=== PATIENT | male | born 1955 | race African-American/Black ===

== ENCOUNTER → 2018-12-27 | Day surgery (SDC) | payer MEDICARE ==
[2018-12-20 12:23] LABS: EOSINOPHILS # (AUTO) 0.1 (0.0-0.4); EOSINOPHILS % 1.5 % (0.0-6.0); HEMATOCRIT 51.8 % (38.2-49.6); HEMOGLOBIN 17.3 g/dL (14.0-18.0); LYMPHOCYTES # (AUTO) 1.5 (1.0-3.2); MEAN CORPUSCULAR HEMOGLOBIN 32.6 pg (28-32); MEAN CORPUSCULAR HGB CONC 33.4 g/dL (31-35); MEAN CORPUSCULAR VOLUME 97.6 fL (81-99); MONOCYTES # (AUTO) 0.5 (0.2-0.8); MONOCYTES % 11.7 % (4.4-11.3); NEUTROPHILS % 48.6 % (38.7-80.0); PLATELET COUNT 174 x10e3/uL (140-360); RED BLOOD COUNT 5.31 x10e6/uL (4.3-5.7); RED CELL DISTRIBUTION WIDTH 14.7 % (11.7-14.4)
[~2018-12-27] MED LIST: DIOVAN160 MG PO; HYOSCYAMINE SULFATE 0.5 MG/ML INJ ONE; MIDAZOLAM HCL 2 MG/2 ML VIAL ONE; PROPOFOL IV EMULSION 10 MG/ML 50 ML VIAL ONE; ZETIA10 MG PO
--- OUTSIDE RECORDS SUMMARY | 2018-12-27 06:06 | XMS REPORT | Encounter Summary ---
Author Organization Unknown Address [address] [place] [address] Phone [phone] Care Team Providers Care Landscape Gardener Name Role Phone Dr. Yogi Ordaz 3 [phone] Reason for Visit Quality BMI DEPRESSION FALL; hyperlipidemia; AWV Annual Wellness Visit Male (VFP); hypertension Instructions 1. Adult health examination electrocardiogram visual acuity 2. Body mass index 25-29 - overweight learning about healthy weight 3. Overweight learning about healthy weight 4. Depression screening 5. At risk for falls preventing falls: care instructions 6. Screening for malignant neoplasm of colon colonoscopy referral 7. Benign essential hypertension CMP, serum or plasma CBC w/ auto diff TSH, serum or plasma urinalysis, dipstick 8. Hyperlipidemia high cholesterol: care instructions lipid panel, serum 9. Impaired fasting glycaemia HbA1c (hemoglobin A1c), blood 10. Screening for malignant neoplasm of prostate PSA, serum or plasma 11. Screening for disorder hepatitis C virus RNA, quant, PCR, serum or plasma 12. Lower urinary tract symptoms due to benign prostatic hypertrophy 13. Nicotine dependence stopping smoking: care instructions advised to quit smoking deciding about using medicines to quit smoking Wellbutrin XL 150 mg 24 hr tablet, extended release 14. Influenza vaccination declined Discussion Note: None recorded. Plan of Care Patient Instructions It was good to see you in the office today for your Medicare Annual Wellness Visit. You have been provided some information on healthy nutrition, including a diet rich in fruits and vegetables, minimizing simple carbohydrates, salt, and saturated fats. I want to encourage regular cardiovascular exercise such as walking at least 30 minutes daily, 5 times per week. Please remember to schedule any preventive health measures that we talked about today. You have also been provided education on fall prevention and community- based lifestyle interventions to help reduce health risks and promote healthy living in your Annual Wellness folder. Screening Recommendations 1. Vaccines Pneumococcal: Recommended today Influenza: Recommended today Shingles: Recommended today Tetanus: Recommended today 2. Prostate Screening: Ordered 3. Colorectal cancer Screening Colonoscopy: Recommended today Fecal Occult Blood: discussed today and information sent with patient in their Annual Wellness health folder 4. Bone Mass Measurement: discussed today 5. Eye Exam Screening: discussed today 6. Cholesterol Screening: discussed today 7. Diabetes Screening: discussed today Reminders Provider Appointments Return to Office on or around 11/23/2018 Yogi Ordaz Jr, MD Lab CMP, Serum or Plasma 10/27/2018 [facility] CBC W/ Auto Diff 10/27/2018 [facility] TSH, Serum or Plasma 10/27/2018 [facility] Lipid Panel, Serum 10/27/2018 [facility] HbA1C (Hemoglobin a1C), Blood 10/27/2018 [facility] PSA, Serum or Plasma 10/27/2018 [facility] Urinalysis, Dipstick 10/27/2018 [facility] Hepatitis C Virus RNA, Quant, PCR, Serum or Plasma 10/27/2018 [facility] Referral Colonoscopy Referral 10/27/2018 Procedures None recorded. Surgeries None recorded. Imaging Electrocardiogram 10/27/2018 [facility] Medications Name Start Date amlodipine 5 mg tablet Take 1 tablet every day by oral route. Wellbutrin XL 150 mg 24 hr tablet, extended release Take 1 tablet every day by oral route for 90 days. Medications Administered None recorded. Vitals Height Weight BMI Blood Pressure 5 ft 11 in 194 lbs 27.1 kg/m2 (1) 152/88 mm[Hg] (2) 128/80 mm[Hg] Lab Results Date Name Specimen Result Interpretation Description Value Range Status Address 10/27/2018 Electrocardiogram Rate & Rhythm sinus bradycardia [facility] ([facility]) Hobby: [address], [place] [facility]: [address], [place] Interval [facility] ([facility]) Hobby: [address], [place] Q[place] Duration [facility]) Hobby: [address], [place] Interval [facility] ([facility]) Hobby: [address], [place] 10/27/2018 Urinalysis, Dipstick Color Color light yellow [facility] ([facility]) Hobby: [address], [place] Color Appearance clear [facility] ([facility]) Hobby: [address], [place] Color Glucose negative [facility]obby: [address], [place] Color Bilirubin negative [facility] ([facility]) [facility]obby: [address], [place] Color Ketones negative [facility] ([facility]) Hobby: [address], [place] Color Specific [place] 1.020 [facility] ([facility]) Hobby: [address], [place] Color Blood negative [facility] ([facility]) [facility]: [address], [place] Color PH 5.5 [facility] ([facility]) [facility]obby: [address], [place] Color Protein negative [facility] ([facility]) Hobby: [address], [place] Color Urobilinogen 0.2 [facility] ([facility]) Hobby: [address], [place] Color Nitrites negative [facility] ([facility]) Hobby: [address], [place] Color Leukocytes negative [facility] ([facility]) Hobby: [address], [place] 10/27/2018 Visual Acuity R Eye Corrected 20/20 [facility] ([facility]) Hobby: [address], [place] L Eye Corrected 20/20 [facility] ([facility]) Hobby: [address], [place] Allergies Code Code System Name Reaction Severity Status Onset Ygypzoc-klp-etp Reductase Inhibitors Myalgias (Muscle Pain) Active NKDA Problems Name Status Onset Date Source Hyperlipidemia Active 10/27/2018 Benign Essential Hypertension Active 10/27/2018 Procedures Date Name Performed by 10/27/2018 Electrocardiogram [facility] ([facility]) [facility]obby [address] [place] [address] (Work Place) Vaccine List None recorded. Social History Smoking Status Heavy Tobacco Smoker (1/2 PPD) Past Encounters 10/27/2018 Adult Health Examination; Body Mass Index 25-29 - Overweight; Overweight; Depression Screening; At Risk for Falls; Screening for Malignant Neoplasm of Colon; Benign Essential Hypertension; Hyperlipidemia; Impaired Fasting Glycaemia; Screening for Malignant Neoplasm of Prostate; Screening for Disorder; Lower Urinary Tract Symptoms Due to Benign Prostatic Hypertrophy; Nicotine Dependence; Influenza Vaccination Declined Yogi Ordaz Jr, MD: [address], [place] [address], Ph. History of Present Illness Hypertension Reported By: Patient HPI: Severity: mild. Onset/Timing: gradual onset. Alleviating Factors: relieved with rest, medication. Self Care: not under emotional stress, blood pressure goal: 130/80. Associated Symptoms: no shortness of breath, no fatigue, no decline in exercise capacity Mini Cog Reported By: Patient Functional Ability: Personal/Social/ Draw a clock and write in the numbers in the correct place, and set the time to 10 minutes after 11 o'clock was completed correctly? Yes, 3 word recall: Your nurse or doctor will ask you to remember 3 words. In 5 minutes, they will ask you to repeat them. Patient recalled 3 words Review of Systems Comprehensive General Adult ROS Reported By: Patient Constitutional: Constitutional: no significant weight gain, no significant weight loss Cardiovascular: Cardiovascular: no chest pain, no shortness of breath when walking Respiratory: Respiratory: no cough, no wheezing, no shortness of breath Endocrine: Endocrine: no fatigue Physical Exam General Adult Exam (male), Cardiology Exam Reported By: Patient Constitutional: General Appearance: well-nourished, well-developed, appears stated age. Level of Distress: NAD Psychiatric: Insight: good judgement. Mental Status: active and alert, normal mood, normal affect. Orientation: to time, to place, to person, oriented to time, place, and person. Memory: recent memory normal, remote memory normal Lungs: Auscultation: good air movement, CTA except as noted, no wheezing, no rales/crackles, no rhonchi Cardiovascular: Heart Auscultation: RRR, normal S1, no rubs, no gallops, physiologically split S2, no click. Pulses including femoral / pedal: full and equal in all extremities except if noted. Systolic Murmur: not heard. Diastolic Murmur: not heard Musculoskeletal:: Extremities: no cyanosis, no edema, no peripheral signs of emboli Skin: Inspection and palpation: warm and dry. Nails: no clubbing Back: Thoracolumbar Appearance: normal curvature, no thoracic deformity, no chest wall tenderness Peripheral Pulses: Radial Pulse: normal
--- OUTSIDE RECORDS SUMMARY | 2018-12-27 06:06 | XMS REPORT ---
Author Author [facility] Address Unknown Phone Unavailable Care Team Providers Care Special Events Fundraiser Name Role Phone Unavailable Unavailable Problems This patient has no known problems. Allergies, Adverse Reactions, Alerts This patient has no known allergies or adverse reactions. Medications This patient has no known medications. Encounters Start Date/Time End Date/Time Encounter Type Admission Type Attending [facility] Care Department Encounter ID 2018-04-05 00:00:00 2018-04-05 00:00:00 Outpatient [facility] [id number] 2018-03-29 00:00:00 2018-03-29 00:00:00 Outpatient [facility] [id number] 2017-12-09 13:30:42 2017-12-09 13:30:42 Outpatient [facility] [id number] 2017-11-04 08:12:51 2017-11-04 08:12:51 Outpatient [facility] [id number] 2017-07-13 11:28:46 2017-07-13 11:28:46 Outpatient [facility] [id number] 2017-06-09 12:25:41 2017-06-09 12:25:41 Outpatient [facility] [id number] 2017-06-09 12:24:53 2017-06-09 12:24:53 Outpatient [facility] [id number] 2017-06-09 12:24:50 2017-06-09 12:24:50 Outpatient [facility] [id number] 2017-05-13 13:03:02 2017-05-13 13:03:02 Outpatient [facility] [id number] 2017-05-13 10:59:45 2017-05-13 10:59:45 Outpatient [facility] [id number] 2017-02-24 09:02:50 2017-02-24 09:02:50 Outpatient [facility] [id number] 2017-02-10 09:26:27 2017-02-10 09:26:27 Outpatient [facility] [id number] 2017-02-08 08:26:26 2017-02-08 08:26:26 Outpatient [facility] [id number] 2017-01-26 08:12:06 2017-01-26 08:12:06 Outpatient [facility] [id number]
--- OUTSIDE RECORDS SUMMARY | 2018-12-27 06:06 | XMS REPORT | Encounter Summary ---
Author Organization Unknown Address [address] [place] [address] Phone [phone] Care Team Providers Care Can Tester Name Role Phone Dr. Yogi Ordaz 3 [phone] Reason for Visit lab follow-up Instructions 1. Abdominal aortic aneurysm screening US, abdominal aorta 2. Raised prostate specific antigen Levaquin 500 mg tablet 3. Benign essential hypertension valsartan 160 mg tablet 4. Hyperlipidemia high cholesterol: care instructions Zetia 10 mg tablet 5. HMG COA reductase inhibitor adverse reaction Discussion Note: None recorded. Plan of Care Reminders Provider Appointments None recorded. Lab None recorded. Referral None recorded. Procedures None recorded. Surgeries None recorded. Imaging US, Abdominal Aorta 11/01/2018 [facility] ([facility] Medications Name Start Date Levaquin 500 mg tablet Take 1 tablet every 24 hours by oral route. valsartan 160 mg tablet Take 1 tablet every day by oral route for 90 days. Wellbutrin XL 150 mg 24 hr tablet, extended release Take 1 tablet every day by oral route for 90 days. Zetia 10 mg tablet Take 1 tablet every day by oral route for 90 days. Medications Administered None recorded. Vitals Height Weight BMI Blood Pressure 5 ft 11 in 192 lbs 26.8 kg/m2 144/82 mm[Hg] Lab Results Date Name Specimen Result Interpretation Description Value Range Status Address 10/27/2018 Hepatitis C Virus RNA, Quant, PCR, Serum or Plasma Normal Hepatitis C Antibody non-reactive non-reactive [facility]: [address] Normal Signal to Cut-off 0.01 <1.00 [facility]: [address] 10/27/2018 CBC W/ Auto Diff Low Wbc 4.03 x10*3/L 4.23-9.07 x10*3/L [facility]: [address] Rbc 5.49 10*12/L 4.63-6.08 10*12/L Final [facility]: [address] [place] Hemoglobin 17.50 g/dL 13.70-17.50 g/dL Final [facility]: [address] [place] High Hematocrit 52.2 % 40.1-51.0 % Final [facility]: [address] [place] Mcv 95.1 fL 80.0-100.0 fL Final [facility]: [address] [place] Mch 31.9 pg 25.7-32.2 pg Final [facility]: [address] [place] Mchc 33.5 g/dL 32.3-36.5 g/dL Final [facility]: [address] [facility] RDW-SD 50.6 fL 35.1-43.9 fL Final [facility] [address] [facility] Count 192.0 k/uL 163.0-337.0 k/uL Final [facility]: [address] [facility] Mpv 10.7 fL 7.5-11.5 fL Final [facility]: [address] [facility] Neut% 46.7 % 34.0-67.9 % Final [facility]: [address] [place] Lymph% 39.2 % 21.8-53.1 % Final [facility]: [address] [place] High Mon% 12.4 % 5.3-12.2 % Final [facility]: [address] [facility] Eos% 1.2 % 0.8-7.0 % Final [facility]: [address] [place] Baso% 0.5 % 0.2-1.2 % Final [facility]: [address] [place] Neut# 1.9 x10*3/L 1.8-5.4 x10*3/L Final [facility]: [address] [facility] Lymph# 1.6 x10*3/L 1.3-3.6 x10*3/L Final [facility]: [address] [facility] Mon# 0.5 x10*3/L 0.3-0.8 x10*3/L Final [facility]: [address] [place] Eos# 0.05 x10*3/L 0.04-0.54 x10*3/L Final [facility]: [address] [place] Baso# 0.02 x10*3/L 0.01-0.08 x10*3/L Final [facility]: [address] [facility] 10/27/2018 CMP, Serum or Plasma Alt 40 U/L 0-55 U/L Final [facility]: [address] Ast 32 U/L 5-34 U/L Final [facility]: [address] Bun 11.3 mg/dL 8.4-25.7 mg/dL Final [facility]: [address] Alk Phos 99 unit/L 40-150 unit/L Final [facility]: [address] Glucose 99 mg/dL 70-99 mg/dL Final [facility]: [address] Albumin 4.0 g/dL 3.5-5.0 g/dL Final [facility]: [address] Creatinine 0.87 mg/dL 0.72-1.25 mg/dL Final [facility]: [address] eGFR Non- >60 mL/min/1.73m2 Final [facility]: [address] Total Bilirubin 1.0 mg/dL 0.2-1.2 mg/dL Final [facility]: [address] eGFR - >60 mL/min/1.73m2 Final [facility]: [address] Sodium 139 mEq/L 136-145 mEq/L Final [facility]: [address] Potassium 4.5 mEq/L 3.5-5.1 mEq/L Final [facility]: [address] Chloride 105 mmol/L 98-107 mmol/L Final [facility]: [address] Total Protein 7.3 g/dL 6.4-8.3 g/dL Final [facility]: [address] Calcium 9.6 mg/dL 8.8-10.0 mg/dL Final [facility]: [address] Co2 26.0 mmol/L 23.0-31.0 mmol/L Final [facility]: [address] Anion Gap 8 calc Final [facility]: [address] 10/27/2018 Lipid Panel, Serum Hdl 49 mg/dL 40-60 mg/dL Final [facility]: [address] High Triglyceride 245 mg/dL 0-149 mg/dL Final [facility]: [address] VLDL Calc. 49 mg/dL Final [facility]: [address] cholesterol/HDL Ratio 5.6 mg/dL Final [facility]: [address] High non-HDL Cholesterol Calc. 224 mg/dL 0-160 mg/dL Final [facility]: [address] High Cholesterol 273 mg/dL 0-199 mg/dL Final [facility]: [address] High LDL Calc. 175 mg/dL 0-130 mg/dL Final [facility]: [address] 10/27/2018 TSH, Serum or Plasma Tsh 1.315 uIU/mL 0.350-4.940 uIU/mL Final [facility]: [address] 10/27/2018 PSA, Serum or Plasma High PSA, Total 4.47 NG/mL <4.00 NG/mL Final [facility]: [address] 10/27/2018 HbA1C (Hemoglobin a1C), Blood A1C W/eag 5.5 % 1.0-5.7 % Final [facility]: [address] Average Blood Glucose 111 mg/dL Final [facility]: [address] 10/27/2018 Electrocardiogram Rate & Rhythm sinus bradycardia [facility]obby: [address], [place] [facility]: [address], [place] Interval [facility]: [address], [place] Duration [facility]obby: [address], [place] QT Interval [facility]obby: [address], [place] 10/27/2018 Urinalysis, Dipstick Color Color light yellow [facility] Hobby: [address], [place] Color Appearance clear [facility] Hobby: [address], [place] Color Glucose negative [facility]: [address], [place] Color Bilirubin negative [facility]obby: [address], [place] Color Ketones negative [facility] Hobby: [address], [place] Color Specific [place] 1.020 [facility]obby: [address], [place] Color Blood negative [facility] Hobby: [address], [place] Color PH 5.5 [facility]obby: [address], [place] Color Protein negative [facility] Hobby: [address], [place] Color Urobilinogen 0.2 [facility]obby: [address], [place] Color Nitrites negative [facility] Hobby: [address], [place] Color Leukocytes negative [facility] Hobby: [address], [place] 10/27/2018 Visual Acuity R Eye Corrected 20/20 [facility]obby: [address], [place] L Eye Corrected 20/20 [facility] Hobby: [address], [place] Allergies Code Code System Name Reaction Severity Status Onset Hyyigbk-azt-uqw Reductase Inhibitors Myalgias (Muscle Pain) Active Problems Name Status Onset Date Source Hyperlipidemia Active 10/27/2018 Benign Essential Hypertension Active 10/27/2018 Raised Prostate Specific Antigen Active 10/28/2018 HMG COA Reductase Inhibitor Adverse Reaction Active 11/01/2018 Procedures Date Name Performed by 10/27/2018 [facility] [address] [facility] [address] [place] [id number] (Work Place) 11/01/2018 US, Abdominal Aorta [facility] [address] [facility] [address] [place] [address] (Work Place) Vaccine List None recorded. Social History Smoking Status Heavy Tobacco Smoker (1/2 PPD) Past Encounters 11/01/2018 Abdominal Aortic Aneurysm Screening; Raised Prostate Specific Antigen; Benign Essential Hypertension; Hyperlipidemia; HMG COA Reductase Inhibitor Adverse Reaction Yogi Ordaz Jr, MD: [address] [address], Ph. 10/27/2018 Adult Health Examination; Body Mass Index 25-29 - Overweight; Overweight; Depression Screening; At Risk for Falls; Screening for Malignant Neoplasm of Colon; Benign Essential Hypertension; Hyperlipidemia; Impaired Fasting Glycaemia; Screening for Malignant Neoplasm of Prostate; Screening for Disorder; Lower Urinary Tract Symptoms Due to Benign Prostatic Hypertrophy; Nicotine Dependence; Influenza Vaccination Declined Yogi Ordaz Jr, MD: [address] [address], Ph. History of Present Illness Generic HPI Template Reported By: Patient Notes: Patient presents for routine lab follow up. Currently without new complaint. Review of Systems Comprehensive General Adult ROS Reported By: Patient Constitutional: Constitutional: no significant weight gain, no significant weight loss Cardiovascular: Cardiovascular: no chest pain, no shortness of breath when walking Respiratory: Respiratory: no cough, no wheezing, no shortness of breath Endocrine: Endocrine: no fatigue Physical Exam Neurology Exam, Cardiology Exam Reported By: Patient Constitutional: Weight: well-nourished. Ambulation: ambulates independently Head: Size/Trauma: normocephalic Mental Status: Orientation oriented to person, oriented to place, oriented to time. Mood/Affect: appropriate mood, appropriate affect. Language: has spontaneous speech. Memory: recent memory intact, remote memory intact. Fund of Knowledge: current events, past history
--- NOTE | 2018-12-27 06:51 | Diagnostic Imaging Report ---
EXAMINATION: CHEST 2 VIEWS INDICATION: PRE-OP COMPARISON: None FINDINGS: TUBES and LINES: None. LUNGS: Lungs are well inflated. Mild bilateral perihilar, peribronchial thickening. There is no evidence of pneumonia or pulmonary edema. PLEURA: No pleural effusion or pneumothorax. HEART AND MEDIASTINUM: The cardiomediastinal silhouette is unremarkable. BONES AND SOFT TISSUES: No acute osseous lesion. Soft tissues are unremarkable. UPPER ABDOMEN: No free air under the diaphragm. IMPRESSION: No acute thoracic abnormality. Mild bilateral perihilar peribronchial thickening. Signed by: Dr. Lis Song M.D. on 12/27/2018 6:47 AM
--- NOTE | 2018-12-27 07:12 | NUR ---
SPIRITUAL CARE - Pre-Surgery Assessment: Pt in bed. Pt's at bedside. Pt reported supportive attention from family and friends. Intervention: I provided pastoral presence, hospitality, and sympathetic listening. I acquainted pt with availability of grinder set up operator external while hospitalized. Outcome: Pt expressed appreciation for visit. No need for follow up indicated at this time. BHAV[facility] Spiritual Care Department O: [phone] Pager: [phone] ([phone])
[2018-12-27 09:55] VITALS: BP 156/103
== END | disposition home or self-care (01) ==
LOC: OR 06:03
PROVIDERS: ATTEND Internal Medicine Gastroenterology
DX: Z12.11 Encounter for screening for malignant neoplasm of colon (principal); D12.0 Benign neoplasm of cecum; D12.2 Benign neoplasm of ascending colon; D12.3 Benign neoplasm of transverse colon; D12.4 Benign neoplasm of descending colon; K64.8 Other hemorrhoids; K57.30 Diverticulosis of large intestine without perforation or abscess without bleeding; R03.0 Elevated blood-pressure reading, without diagnosis of hypertension; E78.6 Lipoprotein deficiency; R09.89 Other specified symptoms and signs involving the circulatory and respiratory systems; F17.210 Nicotine dependence, cigarettes, uncomplicated; Z01.810 Encounter for preprocedural cardiovascular examination; Z01.812 Encounter for preprocedural laboratory examination
CPT/HCPCS: 36415; 45384; 45385; 71046; 85025; 93005; J1980; J2250; J2704; 45378